=== PATIENT | female | born 1950 | race Caucasian/White ===

== ENCOUNTER 2017-01-24 14:24 | Inpatient (IN) | payer OTHER ==
[~2017-01-24] VITALS: Ht 147.3 cm; Wt 59.0 kg
--- NOTE | ~2017-01-24 | EGD ---
EGD REPORT [facility] [address] [address] NAME: TERESA BAUTISTA : 54 STATUS : ADM Dee PAT#: [id number] AGE: 67 ADM/REG DATE : 01/24/17 MR#: [id number] REPORT SERV DATE: 01/26/17 DICTATED BY: MARYLOU DAMON DATE: 01/26/17 REPORT STATUS : Draft [facility]ANS[facility]IBED BY: [facility] DATE: 01/26/17 Endoscopy Center Patient Name: Teresa Bautista Date of : 1950 Attending MD: MARYLOU DAMON MD Procedure Date No Time: 01/26/2017 Procedure: Upper GI endoscopy Indications: Upper abdominal pain, Nausea with vomiting Referring MD: Kimmie HOGAN Medicines: Propofol per Anesthesia Complications: No immediate complications. Estimated blood loss: None. Procedure: Pre-Anesthesia Assessment: - After reviewing the risks and benefits, the patient was deemed in satisfactory condition to undergo the procedure. - Prior to the procedure, a History and Physical was performed, and patient medications and allergies were reviewed. The patient's tolerance of previous anesthesia was also reviewed. The risks and benefits of the procedure and the sedation options and risks were discussed with the patient. All questions were answered, and informed consent was obtained. Prior Anticoagulants: The patient has taken no previous anticoagulant or antiplatelet agents. ASA Grade Assessment: III - A patient with severe systemic disease. After reviewing the risks and benefits, the patient was deemed in satisfactory condition to undergo the procedure. After obtaining informed consent, the endoscope was passed under direct vision. Throughout the procedure, the patient's blood pressure, pulse, and oxygen saturations were monitored continuously. The GIF [id number] was introduced through the mouth, and advanced to the third part of duodenum. The upper GI endoscopy was accomplished without difficulty. The patient tolerated the procedure well. Findings: Mildly severe esophagitis with no bleeding was found. A 6 cm hiatus hernia was present. Diffuse moderate inflammation characterized by congestion (edema), erythema and granularity was found in the gastric antrum. Biopsies were taken with a cold forceps for histology. Estimated blood loss: none. The examined duodenum was normal. Impression: - Mildly severe reflux esophagitis. EGD REPORT [address] [address] NAME: TERESA BAUTISTA : [birth year] STATUS : ADM Dee PAT#: [id number] AGE: 67 ADM/REG DATE : 01/24/17 MR#: [id number] REPORT SERV DATE: 01/26/17 DICTATED BY: MARYLOU DAMON DATE: 01/26/17 REPORT STATUS : Draft TRANSCRIBED BY: [employer] DATE: 01/26/17 - Hiatus hernia. - NSAID-induced chronic gastritis. Biopsied. - Normal examined duodenum. - Cholelithiasis. Recommendation: - Discharge patient to home (ambulatory). - Regular diet. - Continue present medications. - Protonix 40 mg daily. - Discontinue all NSAID medications. - Consider GBX if no better. - Await pathology results. Procedure Code(s): --- Professional --- 21940, Esophagogastroduodenoscopy, flexible, transoral; with biopsy, single or multiple Diagnosis Code(s): --- Professional --- K21.0, Gastro-esophageal reflux disease with esophagitis K44.9, Diaphragmatic hernia without obstruction or gangrene K29.50, Unspecified chronic gastritis without bleeding R10.10, Upper abdominal pain, unspecified R11.2, Nausea with vomiting, unspecified CPT copyright 2013 [employer]. All rights reserved. The codes documented in this report are preliminary and upon signal mechanic review may be revised to meet current compliance requirements. MARYLOU DAMON MD 01/26/2017 4:12 PM This report has been signed electronically. Number of Addenda: 0 Note Initiated On: 01/26/2017 3:04 PM Scope Withdrawal Time 0 hours 0 minutes 0 seconds [address] [place] [id number]
--- NOTE | ~2017-01-24 | HP ---
History And Physical [facility] [address] [place]. [address] NAME: TERESA BAUTISTA : [birth year] STATUS : ADM Dee PAT#: [id number] AGE: 67 ADM/REG DATE : 01/24/17 MR#: [id number] REPORT SERV DATE: 01/25/17 DICTATED BY: JESUS OZUNA DATE: 01/24/17 REPORT STATUS : Draft TRANSCRIBED BY: [employer] DATE: 01/24/17 DATE OF ADMISSION: 01/24/2017 CHIEF COMPLAINT: Abdominal pain, nausea, vomiting, and diarrhea. HISTORY OF PRESENT ILLNESS: This is a 67-year-old female with a history of diverticulitis, osteoarthritis, depression, and chronic pain, who presented to the emergency room at [facility] several times during the last week or week and a half. She had actually presented four times there, had been evaluated and sent home saying there was no significant abnormality. In the last two days or so, the patient has been having constant nausea with vomiting along with diarrhea 5 to 6 times a day. She has become quite weak, is unable to keep anything down and the abdominal pain continued as well. She says the pain is more in the left upper quadrant to epigastric region, constant and not colicky. She finally decided to come to the emergency room for evaluation. She came to [facility]. In the emergency room, initial workup revealed a CT scan of her abdomen and pelvis showing cholelithiasis, but no gallbladder inflammation. It also showed mildly prominent small bowels without any obstruction or bowel inflammation. However, her lactate was elevated at 2.5. Hospitalist Service was called upon to admit her for further evaluation and treatment. At the time of my evaluation, she continued to have the abdominal pain, but not in any acute distress. She had no chest pain, palpitations, or orthopnea. She had no cough, hemoptysis, night sweats, or weight loss. She did not have any temperature, but did have some chills in the last few days. No history of hematochezia, hematemesis, or hematuria. No other history of recent travel or exposures other than those mentioned above. PAST MEDICAL HISTORY: Significant for history of hypertension, osteoarthritis, history of diverticulitis in the past, and depression. SOCIAL HISTORY: She has about 40 to 45 pack-year history of smoking continues to do so. Denied any alcohol use or recreational drug use. She used to work in a factory. FAMILY HISTORY: Noncontributory. MEDICATIONS: At home were reviewed by me in the chart today and reordered by me. REVIEW OF SYSTEMS: As in history of present illness. All other systems were reviewed in detail and are quite unremarkable. PHYSICAL EXAMINATION: GENERAL: This is a pleasant 67-year-old, not in any acute distress. HEENT: Her head is atraumatic, normocephalic. She is alert, awake, oriented to time, place, and person. Pupils are equal, reacting to light and accommodating. External ocular muscles are intact. Membranes are moist and pink. Sclerae are nonicteric. NECK: Supple with no jugular venous distention, lymphadenopathy, or thyromegaly. History And Physical [address] [address] NAME: TERESA BAUTISTA : [birth year] STATUS : ADM Dee PAT#: [id number] AGE: 67 ADM/REG DATE : 01/24/17 MR#: [id number] REPORT SERV DATE: 01/25/17 DICTATED BY: JESUS OZUNA DATE: 01/24/17 REPORT STATUS : Draft TRANSCRIBED BY: SRIDEVI DATE: 01/24/17 LUNGS: Clear to auscultation, although there was prolonged expiratory phase. There were no wheezes, rubs, or crackles. HEART: Heart sounds were regular with no murmurs, rubs, or gallops. ABDOMEN: Soft and nontender. Bowel sounds are present. EXTREMITIES: Showed no cyanosis, clubbing, or edema. NEURO: Grossly intact. No focal sensory or motor deficits. Higher functions appeared intact. VITAL SIGNS: Her temperature today was 98.1, pulse 75, respirations 21 a minute, blood pressure was 166/91, oxygen saturations were 91% breathing 2 L of oxygen via nasal cannula. LABORATORY DATA: Reviewed on the [employer] system showed a normal CMP with a blood glucose of 89, alkaline phosphatase was 96, ALT 60, and AST was 51. Lipase was 67. Lactate was elevated at 2.5. CBC was essentially within normal limits. Urinalysis was not done today. Again, films of the CT scan of her abdomen and pelvis showed cholelithiasis with no gallbladder inflammation. There was also mildly prominent small bowel without any obstruction or evidence of bowel inflammation. IMPRESSION: 1. Abdominal pain. 2. Nausea, vomiting, and diarrhea. 3. Elevated lactate. 4. Hypertension. 5. Osteoarthritis. 6. History of diverticulitis. 7. Depression. PLAN: We will admit Ms. Bautista to the Hospitalist Service with defensive monitoring for a 24-hour observation period. We will go ahead and consult Gastroenterology to see her and evaluate her in the morning and offer recommendations. Meanwhile, we will start her on IV fluids for volume replacement, follow chemistry, and repeat electrolytes in the morning as indicated. I will also provide intravenous Zofran and Phenergan for control of her nausea and vomiting. We will also control her blood pressure with hydralazine if needed. We will continue other home medications and treatments and hold off on ibuprofen. She will be on unfractionated heparin for DVT prophylaxis while here. I have discussed the above plans with the patient. Her questions were answered and she is agreeable to the above recommendations. Hospitalist Service will be following her during her stay here. /SRIDEVI Jesus Ozuna M.D. History And Physical [address] [address] NAME: TERESA BAUTISTA : [birth year] STATUS : ADM Dee PAT#: [id number] AGE: 67 ADM/REG DATE : 01/24/17 MR#: [id number] REPORT SERV DATE: 01/25/17 DICTATED BY: JESUS OZUNA DATE: 01/24/17 REPORT STATUS : Draft TRANSCRIBED BY: SRIDEVI DATE: 01/24/17 / [id number] CC: MD Stepan Poole II, M.D.
--- NOTE | ~2017-01-24 | DS ---
Discharge Summary [facility] [address] [place]. [address] NAME: TERESA GRAMAJO : 54 STATUS : DIS IN PAT#: [id number] AGE: 67 ADM/REG DATE : 01/24/17 MR#: [id number] REPORT SERV DATE: 01/28/17 DICTATED BY: GEOVANNA MCCLURE II DATE: 01/27/17 REPORT STATUS : Draft TRANSCRIBED BY: [employer] DATE: 01/27/17 ADMISSION DATE: 01/24/2017 DISCHARGE DATE: 01/27/2017 DISCHARGE DIAGNOSES: 1. Abdominal pain due to severe reflux esophagitis, hiatal hernia, nonsteroidal anti- inflammatory drug induced gastritis. 2. Hypertension. 3. Anxiety and depression. 4. History of diverticulitis. 5. History of osteoarthritis. CONSULTS: Dr. Dickey with GI. PROCEDURES: EGD showing mildly severe reflux esophagitis, hiatal hernia, NSAID induced chronic gastritis about which was biopsied, otherwise normal duodenum and cholelithiasis noted. BRIEF HISTORY OF PRESENT ILLNESS: The patient is a 67-year-old female with the above history, who presented to [facility] due to abdominal pain, nausea, vomiting, and diarrhea. For detailed history and physical examination, please see Dr. Silveira's note from 01/24/2017. HOSPITAL COURSE: On admission, the patient was placed on a PPI and given supportive care. A CT of the abdomen and pelvis showed no identifiable cause of the abdominal pain. There was some cholelithiasis without gallbladder inflammation, small hiatal hernia, chronic diverticulosis without diverticulitis, and bilateral central lobular emphysema with diffuse hepatic steatosis. Dr. Dickey subsequently took the patient for EGD with the above- mentioned results. The patient has been advised to avoid all NSAIDs except for Tylenol and will be placed on a PPI. At this point, the patient's laboratory values are within normal limits and will be discharged to follow up with her primary care physician. DISCHARGE MEDICATIONS: 1. Symbicort two puffs inhaled b.i.d. 2. Protonix 40 mg p.o. daily. 3. Crestor 20 mg p.o. q.h.s. 4. Hydrochlorothiazide 12.5 mg p.o. daily. 5. Tramadol 50 mg p.o. q.6h p.r.n. pain. DISCHARGE INSTRUCTIONS: The patient will follow up with her PCP, Dr. Lopez, in one to two weeks. DAMARI/SRIDEVI Discharge Summary [facility] [address] [place]. [address] NAME: TERESA GRAMAJO : 54 STATUS : DIS IN PAT#: [id number] AGE: 67 ADM/REG DATE : 01/24/17 MR#: [id number] REPORT SERV DATE: 01/28/17 DICTATED BY: GEOVANNA MCCLURE II DATE: 01/27/17 REPORT STATUS : Draft TRANSCRIBED BY: SRIDEVI DATE: 01/27/17 Geovanna Mcclure II, MD / [id number] CC: MD AMANDA Poole II, JUNG T.
[2017-01-24 15:57] LABS: WBC (NOT ORDERED) (RFLEX) 0 (0-5)
[2017-01-24 16:02] LABS: BASOPHILS 0.1 %; BASOPHILS ABSOLUTE 0.01 10/3/uL (0.0-0.16); EOSINOPHILS 0.1 %; EOSINOPHILS ABSOLUTE 0.01 10/3/uL (0.0-0.53); HEMATOCRIT 40.3 % (36.0-48.0); HEMOGLOBIN 13.8 g/dL (12.0-16.0); IMMATURE GRANULOCYTES 0.2 %; IMMATURE GRANULOCYTES ABSOLUTE 0.02 10/3/uL (0.0-0.11); LYMPHOCYTES 14.7 %; LYMPHOCYTES ABSOLUTE 1.28 10/3/uL (0.67-4.30); MEAN CORPUS HGB CONC 34.2 g/dL (32.0-36.0); MEAN CORPUSCULAR VOLUME 81.7 fL (80-100); MEAN PLATELET VOLUME 9.8 fL (9.2-13.0); MONOCYTES 9.2 %; NEUTROPHILS 75.7 %; NEUTROPHILS ABSOLUTE 6.58 10/3/uL (2.02-8.40); PLATELET COUNT 201 10/3/uL (150-400); RBC DISTRIBUTION WIDTH 13.6 % (12.0-16.0); RED CELL COUNT 4.93 10/6/uL (4.0-5.6); WHITE BLOOD CELLS 8.7 10/3/uL (4.5-10.5)
[2017-01-24 16:03] LABS: MANUAL DIFF NO %
[2017-01-24 16:05] LABS: ASCORBIC ACID (UR NOT ORDER) NEG (NEG); BILIRUBIN, URINE NEGATIVE (NEG); ER URINALYSIS TAT 0 Hrs 09 Mins; KETONE, URINE NEGATIVE (NEG); LEUKOCYTE ESTERASE(NOT OR NEG (NEG); NITRITE (URINE) NEG (NEG)
[2017-01-24 16:16] LABS: ALBUMIN 3.4 G/DL (3.5-5.0); ALKALINE PHOSPHATASE 96 U/L (45-117); BUN (BLOOD UREA NITROGEN) 4 MG/DL (6-23); CALCIUM, SERUM 7.7 MG/DL (8.5-10.4); CHLORIDE, SERUM 102 MMOL/L (96-112); CO2 (CARBON DIOXIDE) 23 MMOL/L (24-34); CREATININE 0.46 MG/DL (0.55-1.02); GFR AFRICAN AMERICAN 121 ML/MIN (>=60); GFR NON AFRICAN AMERICAN 104 ML/MIN (>=60); GLOBULIN 3.4 G/DL (2.5-4.1); GLUCOSE, SERUM 89 MG/DL (60-99); POTASSIUM, SERUM 3.6 MMOL/L (3.5-5.3); SGOT(AST) 51 U/L (5-40); SGPT(ALT) 60 U/L (5-65); SODIUM, SERUM 136 MMOL/L (135-148); TOTAL BILIRUBIN 0.5 MG/DL (0-1.2); TOTAL PROTEIN 6.8 G/DL (6.0-8.5)
[2017-01-24 16:50] LABS: LACTATE 2.5 MMOL/L (0.3-2.4)
[2017-01-24 18:59] LABS: PARTIAL THROMBO TIME 29.7 SEC (22.5-37.2); PROTIME (NOT ORD) 12.7 SEC (12.0-14.5)
[2017-01-24] MEDS ORDERED: SYMBICORT 80/4.1 INH INH (19:21)
[2017-01-24] MEDS ORDERED: CRESTOR20 MG PO (19:21)
[2017-01-24] MEDS ORDERED: ADVIL PO (19:21)
[2017-01-25 04:49] LABS: BASOPHILS 0.1 %; BASOPHILS ABSOLUTE 0.01 10/3/uL (0.0-0.16); EOSINOPHILS 0.1 %; EOSINOPHILS ABSOLUTE 0.01 10/3/uL (0.0-0.53); HEMOGLOBIN 11.8 g/dL (12.0-16.0); IMMATURE GRANULOCYTES 0.3 %; IMMATURE GRANULOCYTES ABSOLUTE 0.02 10/3/uL (0.0-0.11); LYMPHOCYTES 17.8 %; LYMPHOCYTES ABSOLUTE 1.26 10/3/uL (0.67-4.30); MEAN CORPUS HGB CONC 32.9 g/dL (32.0-36.0); MEAN CORPUSCULAR HEMOGLOB 27.4 pg (26.0-34.0); MEAN CORPUSCULAR VOLUME 83.3 fL (80-100); MEAN PLATELET VOLUME 9.6 fL (9.2-13.0); MONOCYTES 8.1 %; MONOCYTES ABSOLUTE 0.57 10/3/uL (0.21-1.20); NEUTROPHILS 73.6 %; PLATELET COUNT 163 10/3/uL (150-400); RBC DISTRIBUTION WIDTH 14.2 % (12.0-16.0); RED CELL COUNT 4.31 10/6/uL (4.0-5.6); WHITE BLOOD CELLS 7.1 10/3/uL (4.5-10.5)
[2017-01-25 04:50] LABS: HEMATOCRIT 35.9 % (36.0-48.0); MANUAL DIFF NO %
[2017-01-25 05:11] LABS: BUN (BLOOD UREA NITROGEN) 6 MG/DL (6-23); CALCIUM, SERUM 7.3 MG/DL (8.5-10.4); CHLORIDE, SERUM 104 MMOL/L (96-112); CO2 (CARBON DIOXIDE) 24 MMOL/L (24-34); CREATININE 0.46 MG/DL (0.55-1.02); GFR AFRICAN AMERICAN 121 ML/MIN (>=60); GFR NON AFRICAN AMERICAN 104 ML/MIN (>=60); GLUCOSE, SERUM 88 MG/DL (60-99); PHOSPHORUS, SERUM 1.7 MG/DL (2.5-4.5); POTASSIUM, SERUM 3.7 MMOL/L (3.5-5.3); SODIUM, SERUM 136 MMOL/L (135-148)
[2017-01-26 06:16] LABS: BASOPHILS 0.2 %; BASOPHILS ABSOLUTE 0.01 10/3/uL (0.0-0.16); EOSINOPHILS 1.3 %; EOSINOPHILS ABSOLUTE 0.08 10/3/uL (0.0-0.53); HEMOGLOBIN 12.7 g/dL (12.0-16.0); IMMATURE GRANULOCYTES 0.3 %; IMMATURE GRANULOCYTES ABSOLUTE 0.02 10/3/uL (0.0-0.11); LYMPHOCYTES 26.2 %; LYMPHOCYTES ABSOLUTE 1.67 10/3/uL (0.67-4.30); MANUAL DIFF NO %; MEAN CORPUS HGB CONC 32.6 g/dL (32.0-36.0); MEAN CORPUSCULAR HEMOGLOB 27.7 pg (26.0-34.0); MONOCYTES 9.4 %; NEUTROPHILS 62.6 %; PLATELET COUNT 167 10/3/uL (150-400); RBC DISTRIBUTION WIDTH 14.8 % (12.0-16.0); RED CELL COUNT 4.59 10/6/uL (4.0-5.6); WHITE BLOOD CELLS 6.4 10/3/uL (4.5-10.5)
[2017-01-26 06:32] LABS: ALBUMIN 3.2 G/DL (3.5-5.0); ALKALINE PHOSPHATASE 97 U/L (45-117); BUN (BLOOD UREA NITROGEN) 3 MG/DL (6-23); CALCIUM, SERUM 7.8 MG/DL (8.5-10.4); CHLORIDE, SERUM 109 MMOL/L (96-112); CO2 (CARBON DIOXIDE) 26 MMOL/L (24-34); CREATININE 0.54 MG/DL (0.55-1.02); GFR AFRICAN AMERICAN 115 ML/MIN (>=60); GFR NON AFRICAN AMERICAN 99 ML/MIN (>=60); GLOBULIN 3.3 G/DL (2.5-4.1); GLUCOSE, SERUM 76 MG/DL (60-99); POTASSIUM, SERUM 3.4 MMOL/L (3.5-5.3); SGOT(AST) 37 U/L (5-40); SGPT(ALT) 47 U/L (5-65); SODIUM, SERUM 144 MMOL/L (135-148); TOTAL BILIRUBIN 0.9 MG/DL (0-1.2); TOTAL PROTEIN 6.5 G/DL (6.0-8.5)
[2017-01-27 05:19] LABS: BASOPHILS 0.1 %; BASOPHILS ABSOLUTE 0.01 10/3/uL (0.0-0.16); EOSINOPHILS 0.7 %; EOSINOPHILS ABSOLUTE 0.05 10/3/uL (0.0-0.53); HEMATOCRIT 41.8 % (36.0-48.0); HEMOGLOBIN 13.6 g/dL (12.0-16.0); LYMPHOCYTES ABSOLUTE 1.23 10/3/uL (0.67-4.30); MEAN CORPUS HGB CONC 32.5 g/dL (32.0-36.0); MONOCYTES 8.8 %; NEUTROPHILS 72.4 %; NEUTROPHILS ABSOLUTE 4.94 10/3/uL (2.02-8.40); PLATELET COUNT 175 10/3/uL (150-400); RBC DISTRIBUTION WIDTH 14.6 % (12.0-16.0); RED CELL COUNT 4.86 10/6/uL (4.0-5.6); WHITE BLOOD CELLS 6.8 10/3/uL (4.5-10.5)
[2017-01-27 05:22] LABS: MANUAL DIFF NO %
[2017-01-27 05:36] LABS: BUN (BLOOD UREA NITROGEN) 5 MG/DL (6-23); CALCIUM, SERUM 8.5 MG/DL (8.5-10.4); CHLORIDE, SERUM 106 MMOL/L (96-112); CO2 (CARBON DIOXIDE) 25 MMOL/L (24-34); CREATININE 0.72 MG/DL (0.55-1.02); GFR AFRICAN AMERICAN 102 ML/MIN (>=60); GFR NON AFRICAN AMERICAN 88 ML/MIN (>=60); POTASSIUM, SERUM 3.6 MMOL/L (3.5-5.3); SODIUM, SERUM 139 MMOL/L (135-148)
[2017-01-27 05:37] LABS: GLUCOSE, SERUM 124 MG/DL (60-99)
[2017-01-27] MEDS ORDERED: ULTRAM50 PO (08:11)
[2017-01-27] MEDS ORDERED: HYDROCHLOROT12.5 MG PO (08:12)
[2017-01-27] MEDS ORDERED: PROTONIX PO (08:12)
== END 2017-01-27 11:19 | disposition home or self-care (01) | DRG 392 ==
LOC: ER 14:24 → ENPENDDIS 19:47 → 4EA 19:47
PROVIDERS: Internal Medicine Gastroenterology; Internal Medicine Pulmonary Disease; Nurse Practitioner Family
PROC: 0DB68ZX Excision of Stomach, Via Natural or Artificial Opening Endoscopic, Diagnostic (ICD-10-PCS; principal; 2017-01-26 15:30)
DX: K21.0 Gastro-esophageal reflux disease with esophagitis (principal); K76.0 Fatty (change of) liver, not elsewhere classified; E83.39 Other disorders of phosphorus metabolism; I10 Essential (primary) hypertension; K44.9 Diaphragmatic hernia without obstruction or gangrene; K29.60 Other gastritis without bleeding; F41.9 Anxiety disorder, unspecified; F32.9 Major depressive disorder, single episode, unspecified; M19.90 Unspecified osteoarthritis, unspecified site; K80.80 Other cholelithiasis without obstruction; F17.210 Nicotine dependence, cigarettes, uncomplicated; E83.51 Hypocalcemia; E87.6 Hypokalemia
CPT/HCPCS: 74176; 80048; 80053; 81001; 82330; 83605; 83690; 83735; 84100; 85025; 85610; 85730; 87040; 87045; 87046; 87046-59; 87328; 87329; 87493; 87493-59; 87899; 87899-59; 88305; 89055; 94640; 96374; 96376; 99285; A9270-GY; J0360; J2405; J2550